=== PATIENT | female | born 1930 | race Asian ===

== ENCOUNTER 2016-11-03 11:05 | Day surgery (SDC) | payer MEDICARE, MEDICAID ==
[~2016-11-03] VITALS: Ht 166.4 cm; Wt 53.6 kg
[~2016-11-03 11:05] MED LIST: ALEN70TA48 PO; CALC-461 PO; CYCLOPENTOLATE HCL 2% 2 ML OPHTHALMIC SOLUTION ONE; DICLOFENAC SODIUM 0.1% 2.5 ML OPHTHALMIC SOLUTION ONE; DONE10TA8 PO; MOXIFLOXACIN HCL 0.5% 3 ML OPHTHALMIC SOLUTION ONE; PHENYLEPHRINE HCL 2.5% 2 ML OPHTHALMIC SOLUTION ONE; RINGERS SOLUTION,LACTATED 500 ML IV ONE
[2016-11-03] MEDS ORDERED: FentaNYL CITRATE-PF 100 MCG/2 ML VIAL IVP ONE (11:06)
[2016-11-03] MEDS ORDERED: MIDAZOLAM HCL 2 MG/2 ML VIAL IVP ONE (11:06)
[2016-11-03] MEDS: CYCLOPENTOLATE HCL 2% 2 ML OPHTHALMIC SOLUTION OD SCH ×3 (11:21→11:30)
[2016-11-03] MEDS: PHENYLEPHRINE HCL 2.5% 2 ML OPHTHALMIC SOLUTION OD SCH ×3 (11:21→11:30)
[2016-11-03] MEDS: MOXIFLOXACIN HCL 0.5% 3 ML OPHTHALMIC SOLUTION OD SCH ×3 (11:22→11:38)
[2016-11-03] MEDS: DICLOFENAC SODIUM 0.1% 2.5 ML OPHTHALMIC SOLUTION OD SCH ×3 (11:22→11:38)
[2016-11-03] MEDS ORDERED: TETRACAINE HCL/PF 0.5% 4 ML OPHTHALMIC SOLUTION OD ONE (12:45)
[2016-11-03] MEDS ORDERED: ACETAMINOPHEN/CODEINE 300-30 MG TABLET PO PRN (12:45)
[2016-11-03] MEDS ORDERED: AcetaZOLAMIDE 250 MG TABLET PO ONE (12:45)
[2016-11-03] MEDS ORDERED: AcetaZOLAMIDE 250 MG TABLET ONE (12:48)
[2016-11-03] MEDS ORDERED: LIDOCAINE HCL 1% 20 ML VIAL ONE (17:42)
[2016-11-03] MEDS ORDERED: HYALURONATE SODIUM 12 MG/ML 0.8 ML SYRINGE IO ONE (17:42)
[2016-11-03] MEDS ORDERED: HYALURONATE SOD/CHONDROITIN SOD 0.5 ML VIAL IO ONE (17:42)
[2016-11-03] MEDS ORDERED: TETRACAINE HCL VISCOUS 0.5% 5 ML OPHTHALMIC SOLUTION ONE (17:42)
[2016-11-03] MEDS ORDERED: POVIDONE-IODINE 10% 15 ML SOLUTION UD ONE (17:42)
[2016-11-03] MEDS ORDERED: EPINEPHrine 1:1,000 [1 MG/ML] AMP ONE (17:42)
[2016-11-03] MEDS ORDERED: BRIMONIDINE TARTRATE 0.15% 5 ML OPHTHALMIC SOLUTION ONE (17:42)
== END 2016-11-03 13:30 | disposition home or self-care (01) ==
LOC: SURGERY 11:05
PROVIDERS: ATTEND Ophthalmology
DX: H25.11 Age-related nuclear cataract, right eye (principal); K21.9 Gastro-esophageal reflux disease without esophagitis; I10 Essential (primary) hypertension; M54.9 Dorsalgia, unspecified; F03.90 Unspecified dementia, unspecified severity, without behavioral disturbance, psychotic disturbance, mood disturbance, and anxiety; M81.0 Age-related osteoporosis without current pathological fracture; F41.9 Anxiety disorder, unspecified; Z98.890 Other specified postprocedural states
CPT/HCPCS: 66982; 93005; C1780; J0171; J2250; J3010; J3490 ×2; J7120